=== PATIENT | female | born 1945 | race Native Hawaiian/Other Pacific Islander ===

== ENCOUNTER 2017-09-19 12:20 | Inpatient (IN) | payer OTHER ==
[~2017-09-19] VITALS: Ht 165.1 cm; Wt 54.4 kg
[2017-09-19] VITALS (12 sets, daily range): BP systolic 81–116; BP diastolic 53–79; TEMP 97.8–99; Ht 165.1 cm; Wt 54.4 kg
[~2017-09-19 12:20] MED LIST: ALBUSOL IN; BISA10SU8 RE; CELEXA40 MG PO; CEPH500C20 PO; DEXA4TAB2 PO; DOCU100C10 PO; FERROUS SULF325 M1 PO; FURO20TA67 PO; FURO40TA93 PO; HALO1TAB3 PO; HYDR10TA47 PO; HYDR5TAB9 PO; KLOR-CON M2020 MEQ OR; LEXAPRO20 MG PO; LORA1TAB17 PO; METO50TA27 PO; MIRALAX3350 N1 PO; MS CONTIN100 MG PO; MS CONTIN15 MG PO; OMEP20CA PO; POTA20TA4 PO; PROVENTIL IN; SENOKOT8.6 MG OR; SEROQUEL50 MG PO; TRAZ100T OR; TRAZ50TA36 PO
[2017-09-20] VITALS (22 sets, daily range): BP systolic 102–179; BP diastolic 62–108; TEMP 97.6–99
[2017-09-20 07:49] LABS: PLATELET COUNT 375 K/uL (152-353)
[2017-09-20 08:03] LABS: POTASSIUM 4.2 mmol/L (3.6-5.2)
[2017-09-21] VITALS (10 sets, daily range): BP systolic 94–168; BP diastolic 51–99; TEMP 98.2–99.2
[2017-09-21 05:16] LABS: PLATELET COUNT 376 K/uL (152-353)
[2017-09-21 05:44] LABS: POTASSIUM 4.2 mmol/L (3.6-5.2)
[2017-09-21] MEDS ORDERED: METR500I3 IVPB (19:21)
[2017-09-21] MEDS ORDERED: METR250T19 PO (19:23)
[2017-09-21] MEDS ORDERED: FLUC150T PO (19:24)
[2017-09-21] MEDS ORDERED: MULT VITAMI1 PO (19:26)
[2017-09-21] MEDS ORDERED: ASCO500T18 PO (19:27)
[2017-09-21] MEDS ORDERED: ZINC SULFATE220 M1 PO ×2 (19:28→19:29)
[2017-09-21] MEDS ORDERED: MUPI2OIN2 TOP (19:30)
[2017-09-21] MEDS ORDERED: LAC-HYDRIN121 EX (19:31)
[2017-09-24] MEDS ORDERED: ALBU0.0813 INH (13:06)
[2017-09-24] MEDS ORDERED: BUSP5TAB2 PO (13:06)
[2017-09-24] MEDS ORDERED: DEXA4TAB2 PO (13:06)
== END 2017-09-21 15:58 | disposition other institution (70) | DRG 309 ==
LOC: ICU 12:20
PROVIDERS: ADMIT Family Medicine
DX: I48.0 Paroxysmal atrial fibrillation (principal); F11.20 Opioid dependence, uncomplicated; A04.72 Enterocolitis due to Clostridium difficile, not specified as recurrent; F03.91 Unspecified dementia, unspecified severity, with behavioral disturbance; F33.3 Major depressive disorder, recurrent, severe with psychotic symptoms; E86.0 Dehydration; R41.82 Altered mental status, unspecified; D64.89 Other specified anemias; E87.6 Hypokalemia; J44.9 Chronic obstructive pulmonary disease, unspecified; I50.9 Heart failure, unspecified; G89.4 Chronic pain syndrome
CPT/HCPCS: 36415; 36600; 80053; 82272; 82805; 85027; 87015; 87045; 87205; 87324; 87328; 87329; 87449; 87899; 93005; 94640; 94664; 94760; 96372; J1650; J2060; J3480; J3490; Q9963